=== PATIENT | female | born 1980 | race Caucasian/White ===

== ENCOUNTER 2020-10-05 04:39 | Day surgery (SDC) | payer OTHER ==
[2020-10-03 13:14] VITALS: BMI 33.6
[2020-10-05 09:32] VITALS: TEMP 97.8
[2020-10-05 10:42] VITALS: BP 111/80; PULSE 72
== END 2020-10-05 10:35 | disposition home or self-care (01) ==
LOC: JASU-ENDO 04:39
PROVIDERS: ATTEND Internal Medicine Gastroenterology
PROC: 0DB98ZX Excision of Duodenum, Via Natural or Artificial Opening Endoscopic, Diagnostic (ICD-10-PCS; 2020-10-05)
PROC: 0DB78ZX Excision of Stomach, Pylorus, Via Natural or Artificial Opening Endoscopic, Diagnostic (ICD-10-PCS; 2020-10-05)
PROC: 0DB28ZX Excision of Middle Esophagus, Via Natural or Artificial Opening Endoscopic, Diagnostic (ICD-10-PCS; 2020-10-05)
PROC: 0DB38ZX Excision of Lower Esophagus, Via Natural or Artificial Opening Endoscopic, Diagnostic (ICD-10-PCS; 2020-10-05)
PROC: 0DJD8ZZ Inspection of Lower Intestinal Tract, Via Natural or Artificial Opening Endoscopic (ICD-10-PCS; principal; 2020-10-05 09:00)
DX: Z12.11 Encounter for screening for malignant neoplasm of colon (principal); K29.40 Chronic atrophic gastritis without bleeding; K21.9 Gastro-esophageal reflux disease without esophagitis; K44.9 Diaphragmatic hernia without obstruction or gangrene; K64.8 Other hemorrhoids; K59.00 Constipation, unspecified; Z80.0 Family history of malignant neoplasm of digestive organs; R13.10 Dysphagia, unspecified; R12 Heartburn
CPT/HCPCS: 43239; G0105; 81025; 88305-TC; 88342-TC